=== PATIENT | male | born 1980 ===

== ENCOUNTER 2017-02-12 17:11 | Emergency (ER) | payer OTHER ==
[2017-02-12] MEDS ORDERED: Sodium Chloride 0.9% 1,000 ML IV ONE (17:37)
--- NOTE | 2017-02-12 17:43 | C.PDOC ---
History Of Present Illness 36 y/o male c/o sudden onset right lower back pain that started an hour ago while in park. pain radiates to right lower abdomen. no prior episodes. pain not worse with movement. no fever, no urinary symptoms. no trauma. Time Seen by Provider: 02/12/17 17:19 Chief Complaint (Nursing): Back Pain History Per: Patient History/Exam Limitations: no limitations Onset/Duration Of Symptoms: Hrs (1) Current Symptoms Are (Timing): Worse Quality Of Discomfort: Unable To Describe Severity: Moderate Previous Symptoms: None Recent travel outside of the [place]: No Past Medical History Reviewed: Historical Data, Nursing Documentation, Vital Signs Vital Signs: Last Vital Signs Temp 97.9 F 02/12/17 19:28 Pulse 69 02/12/17 19:47 Resp 18 02/12/17 19:47 BP 126/72 02/12/17 19:47 Pulse Ox 98 02/12/17 19:47 - Medical History PMH: No Chronic Diseases Surgical History: No Surg Hx Family History: States: Unknown Family Hx - Social History Hx Tobacco Use: No Hx Alcohol Use: No Hx Substance Use: No - Immunization History Hx Tetanus Toxoid Vaccination: No Hx Influenza Vaccination: No Hx Pneumococcal Vaccination: No Review Of Systems Constitutional: Negative for: Fever, Chills Cardiovascular: Negative for: Chest Pain Respiratory: Negative for: Cough Gastrointestinal: Positive for: Abdominal Pain. Negative for: Nausea, Vomiting Genitourinary: Negative for: Dysuria, Frequency, Hematuria Musculoskeletal: Positive for: Back Pain (lower right) Skin: Negative for: Rash Physical Exam - Physical Exam Appears: Non-toxic, Other (in pain) Skin: Warm, Dry Head: Atraumatic, Normacephalic Neck: Normal ROM Chest: Symmetrical, No Deformity, No Tenderness Cardiovascular: Rhythm Regular, No Murmur Respiratory: Normal Breath Sounds, No Rales, No Rhonchi, No Wheezing Gastrointestinal/Abdominal: Bowel Sounds, Soft, No Tenderness Back: Normal Inspection, Other (right lumbar tender) Extremity: Normal ROM, No Tenderness, No Swelling Neurological/Psych: Oriented x3, Normal Speech, Normal Cognition, Normal Motor, Normal Sensation ED Course And Treatment - Laboratory Results Result Diagrams: 02/12/17 17:47 02/12/17 17:47 O2 Sat by Pulse Oximetry: 100 Medical Decision Making Medical Decision Making: pt with right flank/lower back pain with sudden onset that radiates to right abdomen; ddx: musculoskeletal, kidney stone. will get labs, ua. toradal. ivf. re -eval 724 pm pt feeling better after toradol. 3 mm stone found near uvj. will d/c patient with strainer, analgesics and urology follow up. Disposition Counseled Patient/Family Regarding: Studies Performed, Diagnosis, Need For Followup, Rx Given - Disposition Referrals: Wilbert Sunshine MD [Staff Provider] - [facility] [Outside] Disposition: HOME/ ROUTINE Disposition Time: 19:31 Condition: IMPROVED Additional Instructions: Niki lquidos aumentados para ayudar a eliminar la renan en la orina. Colar toda la orina para atrapar la renan cuando pasa. Ahorre la renan y traiga al urlogo cuando usted siga. [place] ibuprofen por la boca cada 6 horas para el dolor hasta que usted pase la renan [place] 1-2 Percocets cada 6 horas para el dolor davi que le hacen sooliento. Llame maana a la oficina del Dr. Sunshine para hacer bi elvi. Vuelva al ER para cualquier dolor, fiebre, vmito, o cualquier otra preocupacin que empeora. Drink increased fluids to help flush out stone in urine. Strain all urine to catch stone when it passes. Save stone and bring to urologist when you follow up. Take ibuprofen by mouth every 6 hours for pain until you pass the stone Take 1-2 Percocets every 6 hours for severe pain- these make you sleepy. Call Dr Sunshine's office tomorrow to make an appointment. Return to ER for any worsening pain, fever, vomiting, or any other concerns. En klein exploracin ct, hay un hallazgo de lquido pericrdico / engrosamiento. Jacinda es un hallazgo incidental. Lleve el informe de ct scan a klein mdico de atencin primaria o clnica mdica y mustrele a klein mdico para bi evaluacin adicional. On your ct scan, there is a finding of pericardial fluid/thickening. This is an incidental finding. Bring ct scan report to your primary care doctor or medical clinic and show to your doctor for further evaluation. Klein nivel de azcar en la north es de 126 en ED. Que es ligeramente elevado. Por favor tenga esto revisado en el consultorio de klein mdico o en la [place] mitchella. Prescriptions: Ibuprofen [Motrin] 600 mg PO QID #30 tab oxyCODONE/Acetaminophen [Percocet 5/325 mg Tab] 1 ea PO Q6 #6 tab Instructions: Kidney Stones (ED) Forms: Gen Discharge Inst [place]se Print Language: NAMIBIAN - Clinical Impression Clinical Impression: Kidney stone on right side, Renal colic on right side
[2017-02-12 17:52] LABS: BASO # 0.1 K/uL (0.0-0.2); BASO % 0.5 % (0.0-2.0); EOS # 0.1 K/uL (0.0-0.7); EOS % 0.5 % (0.0-4.0); HEMOGLOBIN 14.6 g/dL (12.0-18.0); LYMPH # 4.5 K/uL (1.0-4.3); MEAN CELL VOLUME 88.2 fL (80.0-94.0); MEAN CORPUSCULAR HEMOGLOBIN 29.4 pg (27.0-31.0); MEAN CORPUSCULAR HGB CONC 33.4 g/dL (33.0-37.0); MEAN PLATELET VOLUME 7.3 fL (7.2-11.7); MONO # 0.7 K/uL (0.0-0.8); MONO % 5.5 % (0.0-10.0); NEUT # 7.9 K/uL (1.8-7.0); NEUT % 59.5 % (50.0-75.0); RBC 4.97 Mil/uL (4.40-5.90); RED CELL DISTRIBUTION WIDTH 13.8 % (11.5-14.5); WHITE BLOOD COUNT 13.2 K/uL (4.8-10.8)
[2017-02-12] MEDS ORDERED: Sodium Chloride 0.9% 1,000 ML ONE (17:54)
[2017-02-12 17:57] LABS: URINE BACTERIA RARE (<OCC); URINE BILIRUBIN NEGATIVE (NEGATIVE); URINE BLOOD 2+ (NEGATIVE); URINE CALCIUM OXALATE CRYSTALS OCC /hpf (<OCC); URINE CLARITY Clear (Clear); URINE COLOR Yellow (YELLOW); URINE GLUCOSE (UA) NORMAL (Normal); URINE LEUKOCYTE ESTERASE NEG Leu/uL (Negative); URINE NITRATE NEGATIVE (NEGATIVE); URINE PROTEIN NEGATIVE (NEGATIVE); URINE UROBILINOGEN NORMAL mg/dL (0.2-1.0)
[2017-02-12 17:59] LABS: ALBUMIN 4.5 g/dL (3.5-5.0)
[2017-02-12 18:01] LABS: GFR AFRICAN-AMERICAN > 60; GFR NON-AFRICAN AMERICAN > 60
[2017-02-12 18:02] LABS: ALB/GLOB RATIO 1.3 (1.0-2.1); ALT/SGPT 40 U/L (21-72); AST/SGOT 25 U/L (17-59); BLOOD UREA NITROGEN 21 mg/dL (9-20)
[2017-02-12 18:03] LABS: CALCIUM 9.6 mg/dl (8.6-10.4)
--- NOTE | 2017-02-12 19:15 | CT ---
EXAM: CT Abdomen and Pelvis Without Intravenous Contrast CLINICAL HISTORY: 36 years old, male; Pain; Abdominal pain; Flank; Right lower quadrant (rlq); Additional info: Right flank pain and hematuria TECHNIQUE: Axial computed tomography images of the abdomen and pelvis without intravenous contrast. This CT exam was performed using one or more of the following dose reduction techniques: automated exposure control, adjustment of the mA and/or kV according to patient size, and/or use of iterative reconstruction technique. Coronal and sagittal reformatted images were created and reviewed. EXAM DATE/TIME: Exam ordered 02/12/2017 6:00 PM COMPARISON: No relevant prior studies available. FINDINGS: Lower thorax: There is a small amount of pericardial fluid/thickening. ABDOMEN: Liver: Unremarkable. Gallbladder and bile ducts: Unremarkable. No calcified stones. No ductal dilation. Pancreas: Unremarkable. No ductal dilation. Spleen: Unremarkable. No splenomegaly. Adrenals: Unremarkable. No mass. Kidneys and ureters: There is a 3 mm calcification noted in the lower pole of the right kidney. There is a 3 mm calculus noted within the distal right ureter approximately a centimeter from the right ureterovesicular junction. There is mild right hydronephrosis. Stomach and bowel: There a few scattered colonic diverticula. No obstruction. No mucosal thickening. Appendix: No findings to suggest acute appendicitis. PELVIS: Bladder: Unremarkable. No stones. Reproductive: The prostate measures 3.7 x 4.7 x 3.8 cm. ABDOMEN and PELVIS: Intraperitoneal space: Unremarkable. No free air. No significant fluid collection. Bones/joints: No acute fracture. No dislocation. Soft tissues: There is a tiny umbilical hernia containing fat. Vasculature: Unremarkable. No abdominal aortic aneurysm. Lymph nodes: Unremarkable. No enlarged lymph nodes. IMPRESSION: 1. Mild right-sided hydronephrosis secondary to obstructing calculus noted in the distal right ureter. 2. Right renal calculus. 3. Scattered colonic diverticula.
[2017-02-12 19:29] VITALS: RESP 18; TEMP 97.9
[2017-02-12 19:48] VITALS: BP 126/72; PULSE 69
[2017-02-12 20:46] VITALS: O2SAT 100
== END 2017-02-12 19:49 | disposition home or self-care (01) ==
LOC: C.ER 17:11
DX: N20.0 Calculus of kidney (principal)
CPT/HCPCS: 74176; 80053; 81001; 85025; 96361; 96374; 99284; J1885; J7040